=== PATIENT | female | born 1990 | race Caucasian/White ===

== ENCOUNTER 2018-02-18 19:24 | Emergency (ER) | payer SELFPAY | END 2018-02-18 20:33 | disposition home or self-care (01) | LOC: ER 20:33 | DX: L02.416 Cutaneous abscess of left lower limb (principal) | CPT/HCPCS: 99283 ==

== ENCOUNTER 2021-11-22 09:29 | Emergency (ER) | payer OTHER ==
[~2021-11-22] VITALS: Ht 175.3 cm; Wt 90.0 kg
[~2021-11-22 09:29] MED LIST: SULF1TAB24 PO
[2021-11-22 10:30] LABS: BASO # 0.1 x10^3/uL (0.0-0.2); BASO % 1 % (0-3); EOS # 0.1 x10^3/uL (0.0-0.7); EOS % 1 % (0-3); HEMATOCRIT 33.6 % (36.0-47.0); HEMOGLOBIN 10.5 g/dL (12.0-15.5); LYMPH # 1.7 x10^3/uL (1.0-4.8); LYMPH % 14 % (24-48); MEAN CORPUSCULAR HEMOGLOBIN 24 pg (25-35); MEAN CORPUSCULAR HGB CONC 31 g/dL (31-37); MEAN CORPUSCULAR VOLUME 76 fL (79-100); MONO # 0.8 x10^3/uL (0.0-1.1); MONO % 7 % (0-9); NEUT # 9.4 x10^3/uL (1.8-7.7); NEUT % 78 % (31-73); PLATELET COUNT 384 x10^3/uL (140-400); WHITE BLOOD COUNT 12.1 x10^3/uL (4.0-11.0)
[2021-11-22] MEDS: ONDANSETRON PF 4 MG/2 ML VIAL. IVP ONE (10:33)
[2021-11-22] MEDS: MORPHINE SULFATE 2 MG/ML INJ. IVP ONE (10:33)
[2021-11-22] MEDS: DEXAMETHASONE SOD PHOS 20 MG/5 ML VIAL. IV ONE (10:33)
[2021-11-22 10:39] LABS: CALCIUM 9.4 mg/dL (8.5-10.1); CREATININE 0.7 mg/dL (0.6-1.0); GFR 96.4; POTASSIUM 4.1 mmol/L (3.5-5.1)
[2021-11-22 10:45] LABS: ALBUMIN 3.5 g/dL (3.4-5.0); ALBUMIN/GLOBULIN RATIO 0.8 (1.0-1.7); C-REACTIVE PROTEIN 12.6 mg/L (0-3.3); TOTAL BILIRUBIN 0.5 mg/dL (0.2-1.0); TOTAL PROTEIN 7.8 g/dL (6.4-8.2)
[2021-11-22] MEDS ORDERED: CONTRAST GIVEN. MC PRN (10:45)
[2021-11-22] MEDS: IOHEXOL 300 MG/ML 100ML VIAL. IV ONE (11:02)
--- NOTE | 2021-11-22 11:42 | RAD ---
PQRS Compliance Statement: One or more of the following individualized dose reduction techniques were utilized for this examinat ion: 1. Automated exposure control 2. Adjustment of the mA and/or kV according to patient size 3. Use of iterative reconstruction technique CT Neck with Contrast 11/22/2021 10:45 AM Indications: Right-sided uvular swelling with deviation Comparison: None available Technique: Multiple axial tomographic images were obtained with intravenous contrast. Sagittal and coronal recon structions were performed. These were viewed on bone and soft tissue settings. Findings: There is soft tissue fullness in the right peritonsillar region with slight deviation of the airway. No occlusion or airway compromise is identified. No abnormal fluid collection is identified. Brain/sinuses:Normal Thyroid gland: Normal Skeletal structures: Normal Soft tissues: Normal Pharynx/Larynx/Trachea:Normal Upper chest: Lung apices are clear. Impression: 1.Soft tissue fullness in the right tonsillar region with mild effacement on the airway. Findings are perhaps related to infection and phlegmon. No drainable abscess is identified. Electronically signed by: Mercedez Hudson MD (11/22/2021 11:39 AM) [facility]
[2021-11-22 12:14] VITALS: BP 136/74
[2021-11-22] MEDS: CLINDAMYCIN 600MG PREMIX 50 ML IV ONE (12:19)
--- NOTE | 2021-11-22 12:47 | PHYS DOC ---
Past Medical History Past Medical History: No Pertinent History Past Surgical History: No Surgical History Smoking Status: Current Every Day Smoker Alcohol Use: None Drug Use: None General Adult EDM: Chief Complaint: SORE THROAT HPI: HPI: Patient is a 31-year-old female presents to the emergency department complaining of slow onset of right-sided throat pain that started approximately 5 PM, kavya ent reports she woke up this morning and noticed there was more swelling, had right ear pain, was unable to swallow medication for pain, states she cannot swallow or eat related to the throat swelling and pain. Patient states she went to the urgent care who did a strep test told her it was negative and recommend she go to the closest ER for further evaluation. Patient denies recent fever or chills. Reports she has been vaccinated for the COVID vaccine plus a booster, reports being vaccinated for the flu virus this season. Patient states she only takes sertraline and Xanax at home. Reports a past surgical history of gastric bypass surgery on March 2021 at a local [place] [facility]. Patient denies nausea, vomiting, or diarrhea patient denies chest pains, chest palpitations, denies shortness of breath, denies problems breathing. Patient denies other physical complaints or physical concerns. Review of Systems: Review of Systems: 14 body systems of review of systems have been reviewed. See HPI for pertinent positives and negative responses, otherwise all other systems are negative, nonpertinent or noncontributory. Constitutional: Negative except as outlined in HPI above. Skin: Negative except as outlined in HPI above. Eyes: Negative except as outlined in HPI above. HENT: Negative except as outlined in HPI above. Respiratory: Negative except as outlined in HPI above. Cardiovascular: Negative except as outlined in HPI above. GI: Negative except as outlined in HPI above. : Negative except as outlined in HPI above. Musculoskeletal: Negative except as outlined in HPI above. Integument: Negative except as outlined in HPI above. Neurologic: Negative except as outlined in HPI above. Endocrine: Negative except as outlined in HPI above. Lymphatic: Negative except as outlined in HPI above. Psychiatric: Negative except as outlined in HPI above. Heart Score: C/O Chest Pain: No Risk Factors: Risk Factors: DM, Current or recent (<one month) smoker, HTN, HLP, family history of CAD, obesity. Risk Scores: Score 0 - 3: 2.5% MACE over next 6 weeks - Discharge Home Score 4 - 6: 20.3% MACE over next 6 weeks - Admit for Clinical Observation Score 7 - 10: 72.7% MACE over next 6 weeks - Early Invasive Strategies Current Medications: Current Medications Medications (Trade) Dose Ordered Sig/Diann Start Time Stop Time Status Last Admin Dose Admin Clindamycin Phosphate 50 ml @ 100 mls/hr 1X ONCE 11/22/21 12:30 11/22/21 12:59 11/22/21 12:19 100 MLS/HR Dexamethasone Sodium Phosphate (Decadron) 10 mg 1X ONCE 11/22/21 10:00 11/22/21 10:02 DC 11/22/21 10:33 10 MG Hydromorphone HCl (Dilaudid) 1 mg 1X ONCE 11/22/21 12:45 11/22/21 12:46 UNV Info (CONTRAST GIVEN -- Rx MONITORING) 1 each PRN DAILY PRN 11/22/21 10:45 11/24/21 10:44 Iohexol (Omnipaque 300 Mg/ml) 75 ml 1X ONCE 11/22/21 10:45 11/22/21 10:46 DC 11/22/21 11:02 75 ML Morphine Sulfate (Morphine Sulfate) 2 mg 1X ONCE 11/22/21 10:00 11/22/21 10:02 DC 11/22/21 10:33 2 MG Ondansetron HCl (Zofran) 4 mg 1X ONCE 11/22/21 10:00 11/22/21 10:02 DC 11/22/21 10:33 4 MG Allergies: Allergies: Allergies Coded Allergies Type Severity Reaction Last Updated Verified No Known Drug Allergies 11/28/14 No Physical Exam: PE: Constitutional: Well developed, well nourished, no acute distress, non-toxic appearance. 31-year-old female in no apparent distress. HENT: Normocephalic, atraumatic. Patient is speaking in normal voice tones, bilateral TMs intact and within normal limits, oropharynx moist, there is marked swelling of the right side of pharynx with uvular deviation pointing towards the left, marked tonsillar swelling with mild erythema without exudative drainage or cobblestoning of the right, there is no laryngeal edema appreciated, the patient is spitting out all oral secretions, submandibular and tonsillar lymphadenopathy of the right, no other lymphadenopathy appreciated of the head or neck. Eyes: Conjunctiva normal, no discharge. Neck: Normal range of motion, no stridor. Cardiovascular: No cyanosis appreciated, distal cap refill less than 2 seconds. Lungs & Thorax: Patient is in no respiratory distress, no audible adventitious lung sounds appreciated. Abdomen: Nontender, no abnormalities noted. Skin: Warm, dry, no erythema, no rash. Back: No tenderness, no deformities. Extremities: No tenderness, no cyanosis, no clubbing, ROM intact, no edema. Neurologic: Alert and oriented X 3, normal motor function, normal sensory function, no focal deficits noted. Psychologic: Affect normal, judgement normal, mood normal. Current Patient Data: Labs: Laboratory Tests Test 11/22/21 10:15 11/22/21 10:18 11/22/21 11:36 White Blood Count 12.1 x10^3/uL Red Blood Count 4.40 x10^6/uL Hemoglobin 10.5 g/dL Hematocrit 33.6 % Mean Corpuscular Volume 76 fL Mean Corpuscular Hemoglobin 24 pg Mean Corpuscular Hemoglobin Concent 31 g/dL Red Cell Distribution Width 15.0 % Platelet Count 384 x10^3/uL Neutrophils (%) (Auto) 78 % Lymphocytes (%) (Auto) 14 % Monocytes (%) (Auto) 7 % Eosinophils (%) (Auto) 1 % Basophils (%) (Auto) 1 % Neutrophils # (Auto) 9.4 x10^3/uL Lymphocytes # (Auto) 1.7 x10^3/uL Monocytes # (Auto) 0.8 x10^3/uL Eosinophils # (Auto) 0.1 x10^3/uL Basophils # (Auto) 0.1 x10^3/uL Sodium Level 140 mmol/L Potassium Level 4.1 mmol/L Chloride Level 105 mmol/L Carbon Dioxide Level 25 mmol/L Anion Gap 10 Blood Urea Nitrogen 10 mg/dL Creatinine 0.7 mg/dL Estimated GFR (Cockcroft-Gault) 96.4 BUN/Creatinine Ratio 14 Glucose Level 93 mg/dL Calcium Level 9.4 mg/dL Total Bilirubin 0.5 mg/dL Aspartate Amino Transf (AST/SGOT) 15 U/L Alanine Aminotransferase (ALT/SGPT) 10 U/L Alkaline Phosphatase 98 U/L C-Reactive Protein, Quantitative 12.6 mg/L Total Protein 7.8 g/dL Albumin 3.5 g/dL Albumin/Globulin Ratio 0.8 Bedside Urine HCG, Qualitative Hcg negative Erythrocyte Sedimentation Rate 28 Current Medications Medications (Trade) Dose Ordered Sig/Diann Route PRN Reason Start Time Stop Time Status Last Admin Dose Admin Dexamethasone Sodium Phosphate (Decadron) 10 mg 1X ONCE IV 11/22/21 10:00 11/22/21 10:02 DC 11/22/21 10:33 Morphine Sulfate (Morphine Sulfate) 2 mg 1X ONCE IVP 11/22/21 10:00 11/22/21 10:02 DC 11/22/21 10:33 Ondansetron HCl (Zofran) 4 mg 1X ONCE IVP 11/22/21 10:00 11/22/21 10:02 DC 11/22/21 10:33 Iohexol (Omnipaque 300 Mg/ml) 75 ml 1X ONCE IV 11/22/21 10:45 11/22/21 10:46 DC 11/22/21 11:02 Info (CONTRAST GIVEN -- Rx MONITORING) 1 each PRN DAILY PRN MC SEE COMMENTS 11/22/21 10:45 11/24/21 10:44 Clindamycin Phosphate 50 ml @ 100 mls/hr 1X ONCE IV 11/22/21 12:30 11/22/21 12:59 11/22/21 12:19 Hydromorphone HCl (Dilaudid) 1 mg 1X ONCE IVP 11/22/21 12:45 11/22/21 12:49 DC Laboratory Tests Test 11/22/21 10:15 11/22/21 10:18 11/22/21 11:36 White Blood Count 12.1 x10^3/uL (4.0-11.0) H Red Blood Count 4.40 x10^6/uL (3.50-5.40) Hemoglobin 10.5 g/dL (12.0-15.5) L Hematocrit 33.6 % (36.0-47.0) L Mean Corpuscular Volume 76 fL (79-100) L Mean Corpuscular Hemoglobin 24 pg (25-35) L Mean Corpuscular Hemoglobin Concent 31 g/dL (31-37) Red Cell Distribution Width 15.0 % (11.5-14.5) H Platelet Count 384 x10^3/uL (140-400) Neutrophils (%) (Auto) 78 % (31-73) H Lymphocytes (%) (Auto) 14 % (24-48) L Monocytes (%) (Auto) 7 % (0-9) Eosinophils (%) (Auto) 1 % (0-3) Basophils (%) (Auto) 1 % (0-3) Neutrophils # (Auto) 9.4 x10^3/uL (1.8-7.7) H Lymphocytes # (Auto) 1.7 x10^3/uL (1.0-4.8) Monocytes # (Auto) 0.8 x10^3/uL (0.0-1.1) Eosinophils # (Auto) 0.1 x10^3/uL (0.0-0.7) Basophils # (Auto) 0.1 x10^3/uL (0.0-0.2) Sodium Level 140 mmol/L (136-145) Potassium Level 4.1 mmol/L (3.5-5.1) Chloride Level 105 mmol/L (98-107) Carbon Dioxide Level 25 mmol/L (21-32) Anion Gap 10 (6-14) Blood Urea Nitrogen 10 mg/dL (7-20) Creatinine 0.7 mg/dL (0.6-1.0) Estimated GFR (Cockcroft-Gault) 96.4 BUN/Creatinine Ratio 14 (6-20) Glucose Level 93 mg/dL (70-99) Calcium Level 9.4 mg/dL (8.5-10.1) Total Bilirubin 0.5 mg/dL (0.2-1.0) Aspartate Amino Transferase (AST) 15 U/L (15-37) Alanine Aminotransferase (ALT) 10 U/L (14-59) L Alkaline Phosphatase 98 U/L (46-116) C-Reactive Protein, Quantitative 12.6 mg/L (0-3.3) H Total Protein 7.8 g/dL (6.4-8.2) Albumin 3.5 g/dL (3.4-5.0) Albumin/Globulin Ratio 0.8 (1.0-1.7) L POC Urine HCG, Qualitative Hcg negative (Negative) Erythrocyte Sedimentation Rate 28 (0-25) H Laboratory Tests 11/22/21 10:15 Laboratory Tests 11/22/21 10:15 Vital Signs: Vital Signs Date Time Temp Pulse Resp B/P (MAP) Pulse Ox O2 Delivery O2 Flow Rate FiO2 11/22/21 12:14 84 20 136/74 (94) 98 Room Air 11/22/21 09:41 97.7 97.7 EKG: EKG: [] Radiology/Procedures: Radiology/Procedures: REASON: Right sided uvular swelling with deviation PROCEDURE: CT SOFT TISSUE NECK W/CONTRAST PQRS Compliance Statement: One or more of the following individualized dose reduction techniques were utilized for this examination: 1. Automated exposure control 2. Adjustment of the mA and/or kV according to patient size 3. Use of iterative reconstruction technique CT Neck with Contrast 11/22/2021 10:45 AM Indications: Right-sided uvular swelling with deviation Comparison: None available Technique: Multiple axial tomographic images were obtained with intravenous contrast. Sagittal and coronal reconstructions were performed. These were viewed on bone and soft tissue settings. Findings: There is soft tissue fullness in the right peritonsillar region with slight de viation of the airway. No occlusion or airway compromise is identified. No abnormal fluid collection is identified. Brain/sinuses:Normal Thyroid gland: Normal Skeletal structures: Normal Soft tissues: Normal Pharynx/Larynx/Trachea:Normal Upper chest: Lung apices are clear. Impression: 1.Soft tissue fullness in the right tonsillar region with mild effacement on the airway. Findings are perhaps related to infection and phlegmon. No drainable abscess is identified. Electronically signed by: Mercedez Hudson MD (11/22/2021 11:39 AM) [facility] Course & Med Decision Making: Course & Med Decision Making Pertinent Labs and Imaging studies reviewed. (See chart for details) 31-year-old female, vital signs reviewed, presents emerged from concerning throat swelling on the right that started 5 PM yesterday evening. Physical examination concerning for infectious process with possible airway compromise, will order CT soft tissue neck with IV contrast, will give Decadron 10 mg IV, sed rate, CBC, CMP, CRP, urine test, morphine for pain, prophylactic Zofran IV. CT soft tissue neck concerning for right tonsillar infectious process without drainable abscess, concerns for airway deviation/compromise, discussed with patient concerning findings and recommended transfer to hospital with ENT specialist, patient is amenable to ED planning. At 1210, discussed patient case and ED work-up with [facility] transferring physician Dr. Ta and ENT specialist Dr. Randhawa who agreed patient's case warrants transfer to their emergency department for evaluation and consideration for admission related to patient's inability to swallow or eat. It was recommended patient be started on clindamycin IV 600 mg prior to transfer, this was ordered in the ED today. The patient reported only mild pain relief with morphine given, will order IV Dilaudid. Upon reevaluation of the patient and to discuss transfer to [facility] in [facility] emergency department, patient remains in no apparent distress, airway remains patent, patient continues to speak with normal voice tones however patient continues to spit all salivary fluids. All EMTALA/transfer forms were reviewed filled and signed. Patient remains hemodynamically stable at time of transfer. Patient will be transferred by [facility] public relations account executive transport. Dragon Disclaimer: Dragon Disclaimer: This electronic medical record was generated, in whole or in part, using a voice recognition dictation system. Departure Departure Impression: Primary Impression: Swelling of tonsil Additional Impression: Airway compromise Disposition: 02 [facility]ORT TERM [facility] (Patient transferred to [facility] emergency department accepting physician Dr. Rich) Referrals: KIM MURPHY MD (PCP) YUDITH ORTEGA APRN Nov 22, 2021 12:47
[2021-11-22] MEDS: HYDROmorphone 2 MG/ML INJ. IVP ONE (13:02)
== END 2021-11-22 13:06 | disposition short-term general hospital (02) ==
LOC: ER 09:29
DX: J39.2 Other diseases of pharynx (principal); H92.01 Otalgia, right ear; F17.200 Nicotine dependence, unspecified, uncomplicated
CPT/HCPCS: 36415; 70491; 80053; 81025; 85025; 85651; 86140; 96365; 96375; 99285; J1100; J1170; J2270; J2405; J3490; Q9967